=== PATIENT | male | born 1995 | race Caucasian/White ===

== ENCOUNTER 2023-12-16 10:37 | Inpatient (IN) | payer OTHER ==
[2023-12-16 11:03] VITALS: BMI 28.1
[2023-12-16] MEDS ORDERED: NALOXONE (NARCAN) HCL 4 MG/0.1 ML SPRAY NS PRN (13:07)
[2023-12-16] MEDS ORDERED: POLYETHYLENE GLYCOL (HEALTHYLAX) 3350 17 GM PACKET PO PRN (13:07)
[2023-12-16] MEDS ORDERED: guaiFENesin 600 MG TABLET.ER (FP) PO PRN (13:07)
[2023-12-16] MEDS ORDERED: MAGNESIUM HYDROX 2400MG/30ML ORAL SUSPENSION 30 ML CUP PO PRN (13:07)
[2023-12-16] MEDS ORDERED: BENZONATATE 200 MG CAPSULE PO PRN (13:07)
[2023-12-16] MEDS ORDERED: LOPERAMIDE HCL 2 MG CAPSULE PO PRN (13:07)
[2023-12-16] MEDS ORDERED: MAG HYDROX/AL HYDROX/SIMETH 30 ML UNIT-DOSE CUP PO PRN (13:07)
[2023-12-16] MEDS ORDERED: NICOTINE 14 MG/24 HOURS TOPICAL PATCH TD ONE (13:32)
[2023-12-16] MEDS ORDERED: PRENATAL VITAMINS W/ FOLIC ACID TABLET (FP) PO ONE (13:33)
[2023-12-16] MEDS: NICOTINE 14 MG/24 HOURS TOPICAL PATCH TD SCH (13:36)
[2023-12-16] MEDS: PRENATAL VITAMINS W/ FOLIC ACID TABLET (FP) PO SCH (13:36)
[2023-12-16] MEDS: CEPHALEXIN MONOHYDRATE 500 MG CAPSULE (UD) PO SCH ×2 (14:02→17:37)
[2023-12-16] MEDS ORDERED: diazePAM 5 MG TABLET PO PRN (15:12)
[2023-12-16] MEDS ORDERED: ONDANSETRON *ODT* 4 MG TABLET SL PRN (15:14)
[2023-12-16] MEDS ORDERED: BISMUTH SUBSALICYLATE 262 MG/15 ML BTL PO PRN (15:14)
[2023-12-16] MEDS ORDERED: DICYCLOMINE HCL 10 MG CAPSULE PO PRN (15:14)
[2023-12-16] MEDS: PHENAZOPYRIDINE HCL 100 MG TABLET (FP) PO SCH (15:26)
[2023-12-16] MEDS: BUPRENORPHINE HCL 150 MCG, BUPRENORPHINE HCL 75 MCG BC ONE (15:27)
[2023-12-16] MEDS: cloNIDine HCL 0.1 MG TABLET PO ONE (15:40)
[2023-12-16] MEDS ORDERED: TUBERCULIN PPD 5 TU/0.1ML VIAL ID ONE (17:19)
[2023-12-16] MEDS: levETIRAcetam 500 MG TABLET (FP) PO SCH (21:17)
[2023-12-16] MEDS: TAMSULOSIN HCL 0.4 MG CAP PO SCH (21:17)
[2023-12-16] MEDS: MELATONIN 5 MG TABLETS PO SCH (21:19)
[2023-12-16] MEDS: THIAMINE 100 MG TABLET PO SCH (21:19)
[2023-12-16] MEDS ORDERED: MELATONIN 5 MG TABLETS PO SCH (22:00)
[2023-12-16] MEDS: METHOCARBAMOL 500 MG TABLET PO PRN (23:31)
[2023-12-16] MEDS: BUPRENORPHINE HCL 150 MCG, BUPRENORPHINE HCL 75 MCG BC PRN (23:33)
[2023-12-17] MEDS ORDERED: BUPRENORPHINE HCL 150 MCG, BUPRENORPHINE HCL 75 MCG BC PRN
[2023-12-17] MEDS: BUPRENORPHINE HCL 150 MCG, BUPRENORPHINE HCL 75 MCG BC SCH (06:27)
[2023-12-17] MEDS: OXYBUTYNIN CHLORIDE 5 MG TABLET PO SCH (10:14)
[2023-12-17] MEDS: cloNIDine HCL 0.1 MG TABLET PO PRN (11:06)
[2023-12-17 12:09] LABS: BASO % 1.2 % (0-2.0); EOS % 2.8 % (0-4.5); HEMATOCRIT 37.2 % (35.4-49); HEMOGLOBIN 12.3 GM/dL (11.7-16.9); LYMPH % 38.4 % (8-40); MCH 30.3 pg (25.7-33.7); MCHC 33.1 g/dl (32.0-35.9); MEAN CELL VOLUME 91.4 fl (80-96); MONO % 7.6 % (3.8-10.2); PLATELET COUNT 334 10^3/uL (134-434); RBC 4.07 M/mm3 (4.00-5.60); RDW 15.5 % (11.9-15.9); WHITE BLOOD COUNT 5.5 K/mm3 (4.0-10.0)
[2023-12-17 12:17] LABS: POTASSIUM 4.1 mmol/L (3.5-5.1)
[2023-12-17 12:22] LABS: ALBUMIN 3.6 g/dl (3.4-5.0); BLOOD UREA NITROGEN 10.5 mg/dL (7-18); CALCIUM 9.2 mg/dL (8.5-10.1)
[2023-12-17 12:25] LABS: CREATININE 0.8 mg/dL (0.55-1.3)
[2023-12-17 12:26] LABS: BILIRUBIN,TOTAL 0.3 mg/dL (0.2-1)
[2023-12-17] MEDS: IBUPROFEN 400 MG TABLET (FP) PO PRN (13:11)
[2023-12-17] MEDS: SUVOREXANT 10 MG TABLET PO PRN (21:44)
[2023-12-18] MEDS: BUPRENORPHINE HCL 450 MCG FILM BC SCH (06:20)
[2023-12-18] MEDS: ACETAMINOPHEN 325 MG TABLET (FP) PO PRN (08:53)
[2023-12-19] MEDS: BUPRENORPHINE/NALOXONE 4 MG/1 MG FILM PACKET SL SCH (06:20)
[2023-12-19] MEDS: IBUPROFEN 600 MG TABLET (FP) PO PRN (13:34)
[2023-12-19] MEDS: hydrOXYzine PAMOATE 25 MG CAPSULE (FP) PO PRN (17:38)
[2023-12-20] MEDS ORDERED: BUPRENORPHINE/NALOXONE 8 MG/2 MG FILM PACKET SL ONE (06:00)
[2023-12-20] MEDS: BUPRENORPHINE/NALOXONE 8 MG/2 MG FILM PACKET SL SCH (07:09)
[2023-12-20] MEDS ORDERED: BUPRENORPHINE/NALOXONE 8 MG/2 MG FILM PACKET SL SCH (10:00)
[2023-12-20] MEDS: NICOTINE POLACRILEX 4 MG LOZENGE BC PRN (10:07)
[2023-12-20] MEDS: NICOTINE POLACRILEX 4 MG GUM BUC PRN (13:16)
[2023-12-20] MEDS: SUVOREXANT 10 MG TABLET PO PRN (21:42)
[2023-12-21] MEDS: BUPRENORPHINE/NALOXONE 8 MG/2 MG FILM PACKET SL SCH (07:04)
[2023-12-21] MEDS: GABAPENTIN 400 MG CAPSULE PO SCH (13:39)
[2023-12-23] MEDS: METHOCARBAMOL 500 MG TABLET PO PRN (09:24)
[2023-12-23] MEDS: GABAPENTIN 300 MG CAPSULE PO SCH (14:22)
[2023-12-23] MEDS: BACLOFEN 10 MG TABLET (FP) PO SCH (14:22)
[2023-12-23] MEDS: ACETAMINOPHEN 325 MG TABLET (FP) PO PRN (14:23)
[2023-12-23] MEDS: IBUPROFEN 600 MG TABLET (FP) PO PRN (18:09)
[2023-12-24] MEDS: SUVOREXANT 10 MG TABLET PO PRN (21:08)
[2023-12-26] MEDS: HYDROCHLOROTHIAZIDE 12.5 MG CAPSULE (FP) PO SCH (09:59)
[2023-12-27] MEDS: HYDROCHLOROTHIAZIDE 12.5 MG CAPSULE (FP) PO ONE (13:57)
[2023-12-27] MEDS: BENZOCAINE/MENTHOL (CHLORASEPTIC ) LOZENGE MM PRN (17:09)
[2023-12-28] MEDS: HYDROCHLOROTHIAZIDE 12.5 MG CAPSULE (FP) PO SCH (09:59)
[2023-12-28] MEDS ORDERED: HYDROCHLOROTHIAZIDE 25 MG TABLET (FP) PO SCH (10:00)
[2023-12-30] MEDS: SUVOREXANT 10 MG TABLET PO PRN (21:25)
[2023-12-31] MEDS ORDERED: HYDROCHLOROTHIAZIDE 25 MG TABLET (FP) PO SCH (13:45)
[2023-12-31] MEDS: HYDROCHLOROTHIAZIDE 12.5 MG CAPSULE (FP) PO SCH (14:50)
[2024-01-02] MEDS: NALOXONE (NYS OPIOID OVERDOSE PROGRAM) 4 MG/0.1 ML SPRAY NS PRN (08:52)
[2024-01-02] MEDS: NALOXONE (NYS OPIOID OVERDOSE PROGRAM) 4 MG/0.1 ML SPRAY NS SCH (08:54)
[2024-01-02 10:33] VITALS: BP 131/84; RESP 18; TEMP 97.5
[2024-01-02 11:37] VITALS: PULSE 115
== END 2024-01-02 13:00 | disposition home or self-care (01) | DRG 895 ==
LOC: YASAS 10:37 → Y3E 12:43
PROVIDERS: ADMIT Allergy & Immunology; ATTEND Psychiatry & Neurology Pain Medicine
PROC: HZ42ZZZ Group Counseling for Substance Abuse Treatment, Cognitive-Behavioral (ICD-10-PCS; principal; 2023-12-16)
DX: F11.20 Opioid dependence, uncomplicated (principal); F16.20 Hallucinogen dependence, uncomplicated; F10.280 Alcohol dependence with alcohol-induced anxiety disorder; F12.20 Cannabis dependence, uncomplicated; F17.210 Nicotine dependence, cigarettes, uncomplicated; F10.282 Alcohol dependence with alcohol-induced sleep disorder; F41.9 Anxiety disorder, unspecified; F32.A Depression, unspecified; F43.10 Post-traumatic stress disorder, unspecified; G40.909 Epilepsy, unspecified, not intractable, without status epilepticus; M50.20 Other cervical disc displacement, unspecified cervical region; N30.91 Cystitis, unspecified with hematuria; R60.0 Localized edema
CPT/HCPCS: 36415; 80053; 80305; 85025; 86780; 87811; 93005; 93010; J0475